=== PATIENT | female | born 2000 | race African-American/Black ===

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

== ENCOUNTER 2019-01-25 17:34 | Emergency (ER) | payer OTHER ==
[2019-01-25] MEDS ORDERED: cefTRIAXone\\ROCEPHIN 250 MG VIAL ONE (19:57)
[2019-01-25] MEDS ORDERED: Lidocaine 1% PF 5 ML VIAL ONE (19:57)
[2019-01-25] MEDS ORDERED: Azithromycin 250 MG TAB ONE (19:58)
[2019-01-25 20:27] LABS: Bilirubin Negative (Negative); Blood, Urine Negative (Negative); Clarity CLOUDY (Clear); Glucose, Urine (Dipstick) Negative (Negative); Leukocyte Negative (Negative); Nitrite Negative (Negative); Protein, Urine (Dipstick) Negative (Neg-Trace); Specific Gravity, Urine 1.031 (1.002-1.036)
[2019-01-25 20:30] LABS: Pregnancy Test - Urine (BHCG) Negative (Negative); Pregu Control Background? CLEAR/WHITE (CLR/WHITE); Pregu Control Bar Appear? YES (CONTROL BAR); Specific Gravity 1.031 (1.002-1.036)
[2019-01-28 12:06] LABS: Chlamydia by PCR Not Detected (NotDetected); GC by PCR Not Detected (NotDetected)
== END 2019-01-25 21:05 | disposition home or self-care (01) ==
LOC: ERS 17:34
DX: N89.8 Other specified noninflammatory disorders of vagina (principal); Z20.2 Contact with and (suspected) exposure to infections with a predominantly sexual mode of transmission
CPT/HCPCS: 81003; 81025; 87086; 87480; 87491; 87510; 87591; 87660; 96372; J0696; J2001

== ENCOUNTER 2019-11-26 21:44 | Emergency (ER) | payer SELFPAY ==
[2019-11-26] MEDS ORDERED: Naproxen 500 MG TAB ONE (22:07)
== END 2019-11-26 22:11 | disposition home or self-care (01) ==
LOC: ERS 21:44
DX: K02.9 Dental caries, unspecified (principal)
CPT/HCPCS: 99281

== ENCOUNTER 2020-07-19 05:01 | Day surgery (SDC) | payer OTHER ==
[2020-07-19] MEDS ORDERED: hydrALAZINE 20 MG/ML VIAL SLOW IVP PRN (05:41)
[2020-07-19 06:00] VITALS: BP 143/66; BMI 28.8
[2020-07-19] MEDS ORDERED: Lactated Ringer's 1,000 ML IV SCH ×2 (06:00→09:30)
--- NOTE | 2020-07-19 06:01 | PDOC.LDHP ---
Labor and Delivery H&P Chief complaint: contractions Current gestational age (weeks): 34 Allergies/Adverse Reactions: Allergies Allergy/AdvReac Type Severity Reaction Status Date / Time No Known Allergies Allergy Verified 01/05/20 10:38
--- NOTE | 2020-07-19 06:14 | PDOC.FPROB ---
FMR OB H&P: HPI - History of Present Illness Chief Complaint: Contraction Indentification: 20 yo at 34 wga by 8.5 wk sono History of Present Illness: Pt repors to L&D this morning for contractions that began around 4 am. She reports that she was up changing her sons diaper when she began to notice the contractions. She laid down and the contractions did not resolve. She did not time the contractions, but believes they were less than 5 minutes apart. Per the patient, she only drinks a max of 3 bottles of water a day and has had poor water intake over the last few days. She has also noticed that her urine is dark. She denies dysuria, urinary hesitancy, vaginal bleeding, vaginal discharge, LOF. She endorses movement. She reports she was last sexually active around 2 months of . She follows with [facility] due to history of delivery at 27 weeks for painless cervical dilation and reports that her last appointment with them was on 07/11. Primary Care Physician: MARCELINO Marti FMR OB H&P: Current - Care : 2 Para: 1 Gestational age: 34 Due date: 08/30/20 Dating Criteria: 8.5 wk sono Course/Complications: Previous delivery at 27 wks via classical c/s - OB Labs Blood type: AB RH: positive Antibody Screen: negative HIV: negative RPR: negative HepBsAg: negative Rubella: immune Quad screen: negative Urine drug screen: negative Gonorrhea: negative Chlamydia: negative (Positive for chlamydia in February, test of cure on 03/26 was negative) 3 hour GTT: 75, 128, 84 GBS: negative H&H: 11.133.1 Platelets: 202 FMR OB H&P: History - Past Medical History PMH: Denies - OB History OB History: Classical c section at 27 wga due to painless cervical dilation - 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: Menarche at age 11, periods every 21-32 days with 2-7 days Just turned 20 and has not yet had a pap smear History of gonorrhea and chlamydia - Surgical History Sx History: Classical c section - Social History Social History: Denies t/a/d [place] - Family History Family History: Per records, family history of cystic fibrosis in son Reports DM in grandmother FMR OB H&P: Medications - Current Home Medications: Medication Instructions Recorded Confirmed Type Betamet Acet/Betamet Na Ph 12 mg IM Q24HR vial 07/19/20 Rx [Celestone Soluspan] Famotidine 20 mg PO DAILY 07/19/20 07/19/20 History Pnv No.95/Ferrous Fum/Folic AC 1 tab PO DAILY 07/19/20 07/19/20 History [ Caplet] Progesterone, Micronized 1 capsule VAG DAILY 07/19/20 07/19/20 History [Progesterone] Allergies/Adverse Reactions: Allergies Allergy/AdvReac Type Severity Reaction Status Date / Time No Known Allergies Allergy Verified 01/05/20 10:38 FMR OB H&P: ROS - Review of Systems General: denies: fever/chills, fatigue Eyes: denies: vision changes ENT: denies: nasal congestion, rhinorrhea Cardiovascular: reports: edema. denies: chest pain Respiratory: denies: cough, congestion, shortness of breath Gastrointestinal: reports: abdominal pain. denies: nausea, vomiting, diarrhea Genitourinary (Female): reports: polyuria. denies: incontinence, dysuria, vaginal discharge, vaginal pain, vaginal bleeding Musculoskeletal: denies: pain Neurologic: denies: headache Integumentary: denies: rash Psychological: denies: anxiety FMR OB H&P: Vital Signs - Maternal Vital signs: Vital Signs - First Documented Pulse Resp BP 82 18 143/66 H 07/19/20 05:45 07/19/20 05:45 07/19/20 05:45 - Heart Tones [place] contractions every: 2-3 min FMR OB H&P: Physical Exam - Physical Exam General: NAD, awake, alert and oriented HEENT: grossly normal vision, grossly normal hearing Neck: supple, FROM Heart: RRR, normal S1/S2 General: CTAB, no respiratory distress Abdomen: gravid, non-tender Musculoskeletal: FROM in all four extremities Neurological: cranial nerves II through XII intact, sensation to pain,touch and proprioception grossly normal Skin: no rash Lymphatic: no unusual bruising or bleeding, no purpura, no petechia Psychiatric: intact recent and remote memory, good judgement and insight, normal mood and affect - Pelvic Exam Vulva: normal hair distribution, appropriate ariela stage SVE: Closed/thick/high FMR OB H&P: A/P - Problem List (1) contractions Current Visit: Yes Status: Acute Code(s): O47.9 - FALSE LABOR, UNSPECIFIED (2) Current Visit: Yes Status: Acute Discussion: Date/Time: 07/19/20 0612 20 yo at 34 wga by 8.5 wk US presents for contractions contractions r/o labor - SVE: closed/thick/high @ 0600 - fibronectin pending - will bolus 1 L of fluid, UA ordered - Pt follows with MFM - Last cervical length measurement found of 26-28 mm on , will repeat today - on daily vaginal progesterone - Per MFM, repeat at 37th week or 36th week if chandana more than 5 times/hour or dilated > 3 cm - will give 1st dose of steroids today - will keep patient NPO until labor is ruled out sIUP at 34 wga - r/o labor as above - FHT: reactive, will continue to monitor - GBS negative - Anterior placenta - Genetic screening: quad screen normal Hx of classical - delivery at 27 wga - will need repeat c/s at times mentioned above Hx of delivery - delivery at 27 wga in June of 2018 due to painless cervical dilation - Follows with MFM as mentioned above This H&P was discussed with Dr. Llanos and Dr. Shetty who agree with the above doc umentation and plan. Addendum - Attending - Attending Attestation Date/Time: 07/19/20 1143 I personally evaluated the patient and discussed the management with Dr. Alatorre I agree with the History, Examination, Assessment and Plan documented above with any addition or exceptions noted below - 20 yo @34 weeks presents c/o ctx since 4AM. Denies any LOF, VB. (+) FM. H/o delivery via classical C/S @27 weeks. Currently on vaginal progesterone. Afebrile VSS SVE- closed/thick/high. Cat 1 FHTs [place]- ctx q2-5 min. A/P: 1) IUP @34 weeks with ctx- will hydrate; check FFN and cervical length.
[2020-07-19 06:27] LABS: Bacteria/HPF None Seen HPF (None Seen); Bilirubin Negative (Negative); Blood, Urine Negative (Negative); Clarity Clear (Clear); Glucose, Urine (Dipstick) Normal (Negative); Ketone, Urine Negative (Negative); Leukocyte Negative Leu/uL (Negative); Nitrite Negative (Negative); Protein, Urine (Dipstick) Negative (Neg-Trace); RBC/HPF 0-3 HPF (0-3); Squamous Epithelial 0-3 HPF (0-3); Urobilinogen 3 mg/dL (Less than 2); WBC/HPF 0-3 HPF (0-3); pH, Urine 6.5 (5.0-9.0)
[2020-07-19] MEDS ORDERED: Betamet Acet/Betamet Na Ph 30 MG/5 ML VIAL IM SCH (06:30)
[2020-07-19 06:31] LABS: Urine Culture Reflex No No
[2020-07-19 07:06] LABS: Fetal Fibronectin Negative (Negative)
[2020-07-19 07:07] LABS: FFN Internal QC Analyzer PASS (PASS); FFN Internal QC Cassette PASS (PASS)
--- NOTE | 2020-07-19 09:39 | ULT ---
LIMITED OB ULTRASOUND: HISTORY: Evaluation of the cervical canal length. FINDINGS: Real-time imaging of the pelvis shows a single viable intrauterine in a cephalic presentati on. Placenta is anterior in location. No previa. The heart rate is 126 b.p.m. Amniotic flui d index was calculated at 11.0. Cervical canal length was difficult to assess. The best measurement is 2.9 cm. IMPRESSION: Cervical canal length of 2.9 cm. POS: [place]
--- NOTE | 2020-07-19 11:08 | PDOC.BPN ---
<Alexandra Man - Last Filed: 07/19/20 11:08> - Brief Progress Note Patient is a 20 yo at 34 wga by 8.5 wk US presents for contractions. She has now received 2L LR bolus. She reports feeling well. Denies anymore CTX. Her exam was 3. FHT 130s. Cervical length showed 2.99cm. FFN neg. She received betamethasone as well and has appointment to followup at [facility] tomorrow at 2pm to get 2nd injection. Encouraged patient to PO hydrate. She is also to continue vaginal progestrone. Per MFM, repeat 36-37th week if CTX more than 5 times/hr or dilated >3cm. Patient agreeable with the plan. Discussed plan with Dr. Fall. <Tomeka Fall - Last Filed: 07/19/20 11:56> Addendum - Attending - Attending Attestation Date/Time: 07/19/20 1150 I personally evaluated the patient and discussed the management with Dr. Man I agree with the History, Examination, Assessment and Plan documented above with any addition or exceptions noted below - Does not feel any further ctx. (+) FM. Cervical length 2.9; FFN-negative. A/P: 1) ctx- no evidence of PTL; received 1 dose of betamethasone; will give second dose in office tomorrow. D/c home with precautions.
== END 2020-07-19 11:45 | disposition home or self-care (01) ==
LOC: L&D/OP 05:01
PROVIDERS: ATTEND Family Medicine
DX: O47.03 False labor before 37 completed weeks of gestation, third trimester (principal); O09.213 Supervision of pregnancy with history of pre-term labor, third trimester; O34.212 Maternal care for vertical scar from previous cesarean delivery; Z3A.34 34 weeks gestation of pregnancy
CPT/HCPCS: 76815; 81001; 82731; J0702

== ENCOUNTER 2020-07-20 12:54 | Day surgery (SDC) | payer OTHER ==
--- NOTE | 2020-07-20 13:02 | PDOC.FPROB ---
FMR OB H&P: HPI - History of Present Illness Chief Complaint: back pain and CTX Indentification: 20 yo at 34 wga by 8.5 wk sono History of Present Illness: Patient is coming to L&D today due to CTX and low back pain. She reports they started around 4 am this morning and have gotten progressively worse. Intermittent. States CTX less than 5 min apart. Reports pain is 9/10. Patient had appt at [facility] for 2nd steroid shot but stated that she "couldn't make it that long." Of note, patient was here yesterday for CTX and was given steroids, fluid, UA neg for infection. Denies LOF. Reports decreased FM but that she does feel kicks every once in a while. She denies any vaginal bleeding or discharge. Reports increased urinary frequency. She follows with MFM due to history of delivery at 27 weeks for painless cervical dilation and reports that her last appointment with them was on 07/11. Primary Care Physician: MARCELINO Marti FMR OB H&P: Current - Care : 2 Para: 0101 Gestational age: 34.1 Due date: 08/30/20 Dating Criteria: 1T US Course/Complications: previous delivery at 27wks via classical cs - OB Labs Blood type: AB RH: positive Antibody Screen: negative HIV: negative RPR: negative HepBsAg: negative Rubella: immune Quad screen: negative Urine drug screen: negative Gonorrhea: negative Chlamydia: negative (pos in February, LOUIE on 03/26) 3 hour GTT: 75, 128, 84 GBS: negative H&H: 11.1/33.1 Platelets: 202 FMR OB H&P: History - Past Medical History PMH: denies - OB History OB History: classical c section 27wks due to painless cervical dilation - 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 age 11, periods every 21-32 days, duration 2-7days, normal flow Has not had a pap smear hx of gonorrhea/chlamydia s/p treatment - Surgical History Sx History: classical - Social History Social History: denies tobacco, drug or alcohol use Lives in [place] with her son - Family History Family History: Per records, fam hx of cystic fibrosis in son Grandmother - DM FMR OB H&P: Medications - Current Home Medications: Medication Instructions Recorded Confirmed Type Pnv No.95/Ferrous Fum/Folic AC 1 tab PO DAILY 07/19/20 07/20/20 History [ Caplet] Progesterone, Micronized 1 capsule VAG DAILY 07/19/20 07/20/20 History [Progesterone] Acetaminophen [Tylenol Extra 1,000 mg PO Q6H PRN tab 07/20/20 Rx Strength] Allergies/Adverse Reactions: Allergies Allergy/AdvReac Type Severity Reaction Status Date / Time No Known Allergies Allergy Verified 01/05/20 10:38 FMR OB H&P: ROS - Review of Systems General: denies: fever/chills, weight/appetite/sleep changes, night sweats, fatigue Eyes: denies: eye pain, vision changes, double vision, scotomas ENT: denies: nasal congestion, rhinorrhea, frequent nose bleed, sore throat Cardiovascular: denies: chest pain, palpitation, edema, paroxysmal nocturnal dyspnea Respiratory: denies: cough, congestion, shortness of breath Gastrointestinal: reports: abdominal pain, cramping. denies: indigestion, bloating, nausea, vomiting, diarrhea, constipation Genitourinary (Female): reports: polyuria, contractions. denies: incontinence, dysuria, hematuria, vaginal discharge, vaginal pain, vaginal bleeding, vaginal pressure Musculoskeletal: denies: pain, stiffness, tenderness, redness, swelling Neurologic: denies: weakness Integumentary: denies: rash Endocrine: reports: polyuria Psychological: denies: depression, anxiety FMR OB H&P: Vital Signs - Maternal Vital signs: 120/63, 91, 18, 98.4 - Heart Tones Baseline: 140 Variability: moderate Acceleration: present Deceleration: absent Category: category 1 [place] contractions every: irregular FMR OB H&P: Physical Exam - Physical Exam General: NAD, awake, alert and oriented HEENT: normocephalic and atraumatic, EOMI, MMM, no scleral icterus Neck: supple, FROM, trachea midline Chest: non-tender to palpation Breast: symmetric, non-tender, no palpable masses, no skin changes Heart: RRR, normal S1/S2, no murmurs/rubs/gallops, pulses present, no edema General: CTAB, no respiratory distress, good air movement, no rales/rhonchi, no wheezing, no retractions Abdomen: soft, gravid, non-tender, bowel sound present Musculoskeletal: normal gait and station, FROM in all four extremities Skin: no rash, good tugor, capillary refill <2 seconds Lymphatic: no unusual bruising or bleeding Psychiatric: intact recent and remote memory, good judgement and insight, normal mood and affect - Pelvic Exam Vulva: normal hair distribution, no masses, no lesions, no discharge, no blood SVE: -// Romero score: 3 Membranes: intact FMR OB H&P: A/P Discussion: Date/Time: 07/20/20 1259 20 yo at 34.1 wks by 8.5 wk US presents for contractions contractions r/o labor - SVE: 1-2//-3 - fibronectin neg on 07/19/20 - UA neg for infxn on 07/19/20 - Pt follows with MFM - Last cervical length measurement found of 2.6-2.8cm on . On 07/19, cervical length of 2.99cm. - On daily vaginal progesterone - Per MFM, repeat at 37th week or 36th week if chandana more than 5 times/hour or dilated > 3 cm - 1 dose of steroids on 07/19, will give 2nd dose today - PO hydrate, consider bolus - 1g Tylenol for pain - Will recheck in 2 hrs if continues to have CTX sIUP at 34.1wks - r/o labor as above - FHT: reactive, will continue to monitor - GBS negative - Anterior placenta - Genetic screening: quad screen normal Hx of delivery with classical - delivery at 27wks in 06/2018 due to painless cervical dilation - Follows with MFM as mentioned above and will need repeat csection at recommended time listed above This H&P was discussed with Dr. Fall who agree with the above documentation and plan. Addendum - Attending - Attending Attestation Date/Time: 07/21/20 1004 I personally evaluated the patient and discussed the management with Dr. Man on 07/20/2020 I agree with the History, Examination, Assessment and Plan documented above with any addition or exceptions noted below - 20 yo @34.1 weeks presents c/o low back pain and lower abdominal pressure since 4AM. Denies any LOF, VB. (+)FM. Afebrile VSS. SVE 1/thick/high, Cat 1 FHTs, [place]- no ctx; irritability A/P: 1) IUP @34.1 weeks with h/o delivery with last - no evidence of labor currently; Lower abd pain and back improved with tylenol. Second dose of steroids given today. Will d/c home and close follow-up in clinic.
[2020-07-20] MEDS ORDERED: hydrALAZINE 20 MG/ML VIAL SLOW IVP PRN (13:05)
[2020-07-20 13:18] VITALS: BP 120/63; TEMP 98.4
[2020-07-20 13:24] VITALS: BMI 28.8
[2020-07-20] MEDS ORDERED: Betamet Acet/Betamet Na Ph 30 MG/5 ML VIAL IM SCH (13:30)
[2020-07-20] MEDS ORDERED: FLU VACC QS2020-21(6MOS UP)/PF 60 MCG/0.5 ML SYRINGE IM ONE (13:45)
[2020-07-20] MEDS ORDERED: Acetaminophen 500 MG TAB PO PRN (14:01)
--- NOTE | 2020-07-20 15:21 | PDOC.BPN ---
- Brief Progress Note Patient resting comfortably now in bed. Irritability on the monitors. FHT cat 1 strip, 140s with accels. Patient given 1g tylenol, PO hydration, 2nd dose of sterodis. Discussed with patient that she is having normal pains related to the end of . Encouraged her to continue to PO hydrate at home. She can use tylenol for pain. Can use heating pad on her back or stretches as well. Continue progesterone daily. Patient's PCP to call on Thursday to schedule at 36- 37wga. Patient agreeable with plan. Patient to be discharge home. Case discussed with Dr. Fall.
== END 2020-07-20 15:24 | disposition home or self-care (01) ==
LOC: L&D/OP 12:54
PROVIDERS: ATTEND Family Medicine
DX: O47.03 False labor before 37 completed weeks of gestation, third trimester (principal); O99.891 Other specified diseases and conditions complicating pregnancy; M54.5 Low back pain; O34.218 Maternal care for other type scar from previous cesarean delivery; O09.213 Supervision of pregnancy with history of pre-term labor, third trimester; Z3A.34 34 weeks gestation of pregnancy
CPT/HCPCS: 96372; 99283; J0702

== ENCOUNTER 2020-08-02 12:45 | Inpatient (IN) | payer OTHER ==
[2020-08-02] MEDS: Lactated Ringer's 1,000 ML IV SCH ×2 (13:30→14:40)
[2020-08-02] MEDS ORDERED: Acetaminophen 500 MG TAB PO PRN (13:49)
[2020-08-02] MEDS ORDERED: Promethazine HCl 25 MG/ML VIAL IM PRN ×2 (13:49→14:27)
[2020-08-02] MEDS ORDERED: Docusate 100 MG CAP PO PRN (13:49)
[2020-08-02] MEDS ORDERED: Ondansetron PF 4 MG/2 ML Vial IVP PRN ×2 (13:49→14:27)
[2020-08-02] MEDS ORDERED: hydrALAZINE 20 MG/ML VIAL SLOW IVP PRN ×2 (13:49→18:42)
[2020-08-02] MEDS ORDERED: Bicitra 30 ML UDCUP ONE (13:53)
[2020-08-02 13:58] VITALS: BMI 27.6
[2020-08-02] MEDS ORDERED: CEFAZOLIN 2 GM in Premix Bag 1 BAG IVPB SCH (14:00)
[2020-08-02] MEDS ORDERED: Bicitra 30 ML UDCUP PO SCH (14:00)
[2020-08-02] MEDS ORDERED: Ondansetron PF 4 MG/2 ML Vial ONE (14:11)
[2020-08-02] MEDS ORDERED: ePHEDrine 50 MG/ML VIAL ONE (14:11)
[2020-08-02] MEDS ORDERED: Oxytocin 10 UNITS/ML VIAL ONE ×2 (14:11→15:55)
[2020-08-02] MEDS ORDERED: Ketorolac Tromethamine 30 MG/ML VIAL ONE (14:11)
[2020-08-02] MEDS ORDERED: PHENYLEPHRINE-NS 100 MCG/ML 10 ML SYRINGE ONE (14:11)
[2020-08-02 14:19] LABS: Hemoglobin 10.6 g/dL (12.0-16.0); Mean Corpuscular HGB CONC 31.8 g/dL (32.0-36.0); Mean Corpuscular Hemoglobin 26.4 pg (27.0-31.0); Mean Corpuscular Volume 83.2 fL (78.0-98.0); Mean Platelet Volume 8.8 fL (7.4-10.4); Platelet Count 195 thou/uL (130-400); Red Blood Cell (RBC) Count 4.02 mill/uL (4.20-5.40); White Blood Cell (WBC) Count 8.9 thou/uL (4.8-10.8)
[2020-08-02] MEDS ORDERED: L&D-Morphine 4 MG/ML VIAL SLOW IVP PRN (14:27)
[2020-08-02] MEDS ORDERED: HYDROmorphone 2 MG/ML VIAL SLOW IVP PRN (14:27)
[2020-08-02] MEDS ORDERED: Promethazine HCl 25 MG SUPP PR PRN (14:27)
[2020-08-02] MEDS ORDERED: Meperidine HCl/PF 25 MG/ML VIAL SLOW IVP PRN (14:27)
[2020-08-02] MEDS ORDERED: Naloxone HCl 0.4 mg/ml Vial IVP PRN ×2 (14:27)
[2020-08-02] MEDS ORDERED: diphenhydrAMINE 50 MG/ML VIAL IVP PRN (14:27)
[2020-08-02] MEDS ORDERED: Ondansetron HCl/PF 4 MG/2 ML Vial IVP PRN (14:27)
[2020-08-02] MEDS ORDERED: Ketorolac Tromethamine 30 MG/ML VIAL IVP SCH (14:30)
[2020-08-02] MEDS ORDERED: Communication Order-Pharmacy FS SCH (14:30)
[2020-08-02 14:57] LABS: Syphilis Antibody Nonreactive (Nonreactive); Syphilis Antibody Index 0.05 S/CO (<1.00 Non-Reactive)
[2020-08-02 14:58] LABS: HBSAg Index 0.15 S/CO (0-0.99); Hep B Surf Ag Non-Reactive S/CO (NonReactive)
[2020-08-02] MEDS ORDERED: Ketamine 50 MG/ML (10ML VIAL) ONE (15:44)
[2020-08-02] MEDS ORDERED: Midazolam HCl 2 mg/2 ml Vial ONE (15:46)
--- NOTE | 2020-08-02 16:00 | PDOC.FPROB ---
FMR OB H&P: HPI - History of Present Illness Chief Complaint: Dilated History of Present Illness: Patient is a 23 yo at 36.0 weeks by 8.5 week sono, [place] 08/30/2020 who was sent over from clinic after having an SVE that showed she was 3cm dilated. Patient denies contractions, loss of fluid, VB or VD and notes baby is moving well. 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 At 27 weeks started to have contractions, dilated to 5cm and csection was performed due to lie. -- Classical csection - [employer] History [employer] History: NILM 12/2018 - Surgical History Sx History: classical csection - Social History Social History: no smoking, drugs or alcohol - Family History Family History: CF in son FMR OB H&P: Medications - Current Home Medications: Medication Instructions Recorded Confirmed Type Mv-Mn/Iron/FA/Herbal/Digestive 1 tablet PO DAILY 08/02/20 08/02/20 History [ One Tablet] Allergies/Adverse Reactions: Allergies Allergy/AdvReac Type Severity Reaction Status Date / Time No Known Allergies Allergy Verified 08/02/20 13:58 FMR OB H&P: ROS - Review of Systems General: denies: fever/chills, weight/appetite/sleep changes Eyes: denies: eye pain, vision changes ENT: denies: nasal congestion, rhinorrhea Cardiovascular: denies: chest pain, palpitation Respiratory: denies: cough, congestion Gastrointestinal: denies: abdominal pain, nausea, vomiting, diarrhea Genitourinary (Female): denies: incontinence, dysuria Musculoskeletal: denies: pain, stiffness Neurologic: denies: numbness, syncope Integumentary: denies: itching, rash Breast: denies: lumps, bumps Endocrine: denies: cold intolerance, heat intolerance Hematologic/Lymphatic: denies: prolonged or excessive bleeding, enlarged lymph nodes Psychological: denies: depression, anxiety FMR OB H&P: Vital Signs - Maternal Vital signs: Vital Signs - First Documented Temp Pulse Resp BP Pulse Ox 98.7 F 89 18 129/78 99 08/02/20 13:53 08/02/20 13:53 08/02/20 13:53 08/02/20 13:53 08/02/20 13:53 - Heart Tones Variability: moderate Acceleration: present Deceleration: absent Category: category 1 Woodman contractions every: none FMR OB H&P: Physical Exam - Physical Exam General: NAD HEENT: normocephalic and atraumatic, PERRLA, EOMI Neck: supple Heart: RRR, no murmurs/rubs/gallops General: CTAB, no respiratory distress Abdomen: soft, gravid Musculoskeletal: normal gait and station, FROM in all four extremities Neurological: sensation to pain,touch and proprioception grossly normal, no focal deficit FMR OB H&P: Results - Labs Lab results: Laboratory Results - last 24 hr 08/02/20 08/02/20 08/02/20 14:04 14:04 14:04 WBC 8.9 RBC 4.02 L Hgb 10.6 L Hct 33.4 L MCV 83.2 MCH 26.4 L MCHC 31.8 L RDW 14.0 Plt Count 195 MPV 8.8 Syphilis IgG/IgM Ab Nonreactive Blood Type AB POSITIVE FMR OB H&P: A/P - Problem List (1) Current Visit: No Status: Acute Qualifiers: Weeks of gestation: 36 weeks Qualified Code(s): Z3A.36 - 36 weeks gestation of Discussion: Date/Time: 08/02/20 1559 Patient is a 19 year old @ 36 weeks based on 8.2 week sono who was sent over from clinic due to being dilated to 3cm. 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 Lopez and Skyla who agree with the above documentation and plan. Addendum - Attending - Attending Attestation Date/Time: 08/02/20 9033 I personally evaluated the patient and discussed the management with Dr. Hodge. I agree with the History, Examination, Assessment and Plan documented above with any addition or exceptions noted below. at 36.0 wk w/ prior classical. C/T/H on 07/20 -> 4-5 cm today. needs rLTCS for prior classical with latent labor. R/B/A/I discussed w/ pt who agreed to proceed.
--- NOTE | 2020-08-02 17:46 | PDOC.OPDEL ---
OB Operative/Delivery Note Delivery Dr/Surgeon: Philipp/Skyla Pre-Delivery Diagnosis: other ( cervical dilation in setting of history of classical uterine c/s with [facility] recommendations to deliver via rLTCS if cervical dilation >= 3cm.) Procedure/Post Delivery Dx: repeat low transverse CS (with vacuum-assisted extraction) Anesthesia: spinal - Findings A Sex: female Weight: 2735 kg - 1 min: 6 - 5 min: 8 - Additional Findings/Plan Placenta delivered: manual removal findings: low transverse hysterotomy without extension, other (moderate, complex scar tissue and adhesions between fascia and uterus) Estimated blood loss: 900 Compilations/Other Findings: Date of Procedure: 08/02/20 Resident Surgeon: Philipp Attending Surgeon: Skyla Procedure: Repeat low transverse caesarean section Preoperative Diagnosis: 1) Cervical dilation in setting of h/o cervical insufficiency with h/o classical uterine caesarean 2) , [facility] 3) Cystic Fibrosis carrier 4) History of GC/C with LOUIE negative this Postoperative Diagnosis: 1) Vacuum-assisted repeat low transverse caesarean section 2) Uterine window 3) Moderate scar tissue and complex intraabdominal adhesions. Anesthesia: spinal Indications: The patient is a 20 year old female at 36.0 weeks by 8.5 week sono who presented with active cervical dilation in setting of history of cervical insufficiency with history of classical uterine caesarean. [facility] recommendations to delivery via repeat low transverse caesarean if cervical dilation progressing and dilation greater than or equal to 3cm. Procedure in Detail: After risks, benefits, and alternatives were explained to the patient, she gave informed consent. Pre-operative antibiotics included Cefazolin 2 gram IV. The patient was taken to the operating room and spinal anesthesia was initiated. She was placed in the supine position with a left tilt and prepped and draped in usual sterile fashion. A Pfannenstiel incision was made with a scalpel over the previous pfannenstiel skin excision and carried down to the level of the fascia which was sharply nicked. Small areas of bleeding were controlled with bovie electrocautery. The fascial cut was extended bilaterally with Yoo scissors. The inferior and superior edges of the cut fascial edges were elevated with Mary clamps and the underlying rectus muscles were sharply and bluntly dissected free. Moderate, complex adhesions were noted between the rectus layer and the fascial layer which required blunt and sharp dissection. The recti were then divided with blunt and sharp dissection and retracted manually. The peritoneum was entered bluntly and retracted manually. Again, moderate, complex adhesions were noted between the rectus layer and anterior aspect of the uterus. Adhesions were bluntly dissected along with bovie electrocautery to provide adequate space and uterine visualization. An Foster O was then placed. A bladder flap was then made using Mets and blunt dissection. A small uterine window, approx 1.5cm, was noted at the inferior apex of the previous classical incision scar. A low transverse score was made with a new, clean scalpel and the uterus was entered in the midline bluntly. The hysterotomy was extended manually. The infant was noted to be vertex and was not easily delivered by fundal pressure alone due to restriction from the abdominal scaring. Vacuum-assisted extraction was performed with no pop-offs, and infant was delivered at 1546. Mouth and nares were bulb suctioned. Cord clamped and cut and grossly normal female infant was handed to waiting nurse. Cord blood was obtained. Placenta was manually extracted, found to be intact with 3 vessel cord and discarded. The uterus was unable to be externalized due to adhesions. The endometrium was curetted with a dry lap x2. The uterus was noted to be firm. The uterus was then closed with a running locking #1 Monocryl. A running, nonlocking, imbricating layer was then placed using #1 Monocryl over the initial hysterotomy repair. The hysterotomy incision was then noted to be hemostatic. The uterine window was noted be in intact and hemostatic. The omentum was noted to be adhesed to the superior, anterior aspect of the uterus with small areas of oozing over the anterior aspect of the uterus. Bovie electrocautery was used to control active bleeders. Monica was then placed over the anterior aspect of the uterus and the uterus was then noted to be hemostatic. The Foster O was then removed and again, uterus was inspected and noted to be hemostatic. The scarred, rectus layer was noted to have areas of small bleeding which were cauterized with bovie electrocautery and more Monica placed. The rectus, peritoneum, and uterus were again inspected and found to be hemostatic. The fascia was then c losed with a running non-locking 1-PDS suture. The bovie electrocautery was used to achieve hemostatis of small areas of bleeding. The subcutaneous tissue was irrigated and there were no bleeders. The subcutaneous tissue was reapproximated with a running, nonlocking 2-0 plain gut suture. The skin was approximated with a running, nonlocking 3-0 Monocryl suture. All counts were correct x3. The patie nt tolerated the procedure well and was taken to the recovery room in stable condition. QBL: 900cc Complications: None Specimens: Cord blood sent to lab for blood type. Findings: 1. Grossly normal female with Apgars of 6 and 8 who went to the NICU for respiratory distress. 2. Grossly normal placenta with 3 vessel cord. 3. Moderate, complex adhesions noted over anterior aspect of uterus between omentum and rectus layer 4. Approximately 1.5cm uterine window on anterior aspect of uterus at inferior edge of previous classical incision scar Drains: Johnson to gravity draining clear urine ATTENDING ADDENDUM: I was present for and supervised all critical portions of the procedure. I agree with the above documentation. Post delivery plan: routine recovery
[2020-08-02] MEDS ORDERED: NS / Oxytocin 40 units/1000ml 1,000 ML IV SCH (18:42)
[2020-08-02] MEDS ORDERED: Methylergonovine 0.2 MG/ML VIAL IM PRN (18:42)
[2020-08-02] MEDS ORDERED: Acetaminophen 325 MG TAB PO PRN (18:42)
[2020-08-02] MEDS ORDERED: HYDROcodone/Acetaminophen 5/325 mg Tablet PO PRN ×2 (18:42)
[2020-08-02 19:08] LABS: SARS-CoV-2 MS2 Positive; SARS-CoV-2 N Gene Negative; SARS-CoV-2 S Gene Negative; SARS-CoV-2 by NAA Not Detected (NotDetected); SARS-CoV-2 orf1ab Negative
--- NOTE | 2020-08-02 19:40 | PDOC.BPN ---
- Brief Progress Note Encounter Date: 08/02/20 Encounter Time: 19:30 4 hour Post-OP CS check. HPI: Pt reports she has no pain, is feeling well. Denies headache, chest pain, SOB. Reports she is starting to itch. Ph ex: Vitals signs stable. Cardiac: RRR, no murmur Lungs: BCTA Abd: soft, NTTP, fundus firm below umbilicus. CS incision covered with bandage, has not soaked through. Lochia minimal. A/P: Continue routine PP care Benadryl for itching.
[2020-08-02] MEDS: Ketorolac Tromethamine 30 MG/ML VIAL IVP PRN (20:16)
[2020-08-03] MEDS: Ketorolac Tromethamine 30 MG/ML VIAL IVP PRN (05:32)
[2020-08-03 06:14] LABS: Hemoglobin 7.9 g/dL (12.0-16.0); Mean Corpuscular HGB CONC 32.1 g/dL (32.0-36.0); Mean Corpuscular Hemoglobin 27.2 pg (27.0-31.0); Mean Corpuscular Volume 84.5 fL (78.0-98.0); Mean Platelet Volume 8.8 fL (7.4-10.4); Platelet Count 169 thou/uL (130-400); RBC Distribution Width 13.8 % (11.5-14.5); Red Blood Cell (RBC) Count 2.89 mill/uL (4.20-5.40); White Blood Cell (WBC) Count 14.5 thou/uL (4.8-10.8)
[2020-08-03] MEDS: Docusate Calcium (SURFAK) 240 MG CAP PO SCH ×3 (07:07→20:57)
[2020-08-03] MEDS: Lactated Ringer's 1,000 ML IV SCH ×4 (07:24→21:09)
--- NOTE | 2020-08-03 08:11 | PDOC.PP ---
Post Progress Note Post Day #: 1 Subjective: Patient is resting comfortably in bed. States she no abdominal pain or pain at the incision site. States she has been urinating frequently and her valdez just got taken out. She has eaten some jello and states mild nausea at first that resolved and she just ordered a normal breakfast. Patient states she is about to get up and walk for a bit. Denies fever/chills, denies syncope, feeling light- headed, palpitations. PO intake tolerated: yes Ambulation: no Vital Signs (12 hours) Temp Pulse Resp BP 08/03/20 05:31 98.5 F 95 16 100/63 08/03/20 01:10 97.9 F 79 16 111/59 L Weight Weight 77.564 kg - Physical Examination General: NAD Cardiovascular: no m/r/g, RRR Respiratory: clear to auscultation bilaterally, non-labored breathing Abdominal: + bowel sounds, lochia (mild), appropriately TTP Skin: CS incision dry & intact, no rash Neurological: no gross focal deficits Psychiatric: A&Ox3, normal affect Result Diagrams: 08/03/20 05:47 Additional Labs: Post Labs Hep Bs Antigen Non-Reactive S/CO (NonReactive) 08/02/20 14:04 Blood Type AB POSITIVE 08/02/20 14:04 (1) delivery Code(s): O60.10X0 - LABOR W DELIVERY, UNSP TRIMESTER, UNSP Status: Acute (2) delivery delivered Code(s): O82 - ENCOUNTER FOR DELIVERY WITHOUT INDICATION Status: Acute - Assessment/Plan 20 yo @ 36 weeks delivered via rLTCs @ 1546 on 08/02/2020 Delivery via rLTCs at 36 weeks Post-op Day 1 EBL 900, APGARS 6/8 H/H 7.9/24.4, currently asymptomatic - recheck CBC in am - will give oral iron - pain is controlled, tylenol and norco prn - will continue to monitor This H&P was discussed with Dr. Lopez and Skyla who agree with the above documentation and plan. Addendum - Attending - Attending Attestation Date/Time: 08/03/20 1046 I personally evaluated the patient and discussed the management with Dr. Hodge. I agree with the History, Examination, Assessment and Plan documented above with any addition or exceptions noted below. Denied sx with standing. Continue pain control and other expectant management. Possible d/c tomorrow. Discussed uterine window and abdominal adhesions with patient and explained possible complications with future pregnancies including uterine rupture and maternal/ . F/U clinic for contraception.
[2020-08-03] MEDS ORDERED: Adacel (T-DAP) 0.5 ML SYRINGE IM ONE (09:00)
[2020-08-03] MEDS: Ferrous Sulfate 325 MG TAB PO SCH ×2 (09:06→19:05)
[2020-08-03] MEDS: Prenatal Vitamin 1 TAB PO SCH (09:06)
[2020-08-03] MEDS: Ibuprofen 800 MG TAB PO SCH ×2 (14:26→20:57)
[2020-08-03] MEDS: Naloxone HCl 0.4 mg/ml Vial IV PRN ×3 (14:33→15:26)
[2020-08-04] MEDS: Ibuprofen 800 MG TAB PO SCH ×3 (04:48→21:37)
[2020-08-04] MEDS: Ferrous Sulfate 325 MG TAB PO SCH ×2 (08:56→17:06)
[2020-08-04] MEDS: Prenatal Vitamin 1 TAB PO SCH (08:56)
[2020-08-04] MEDS: Docusate Calcium (SURFAK) 240 MG CAP PO SCH ×2 (08:56→21:36)
[2020-08-04] MEDS ORDERED: Acetaminophen/Codeine 30-300mg Tablet PO PRN (08:57)
--- NOTE | 2020-08-04 09:03 | PDOC.PP ---
Post Progress Note Post Day #: 2 PO intake tolerated: yes Flatus: yes Ambulation: yes Vital Signs (12 hours) Temp Pulse Resp BP Pulse Ox 08/04/20 07:40 98.8 F 93 18 100/55 L 98 08/04/20 04:00 98.1 F 94 16 96/55 L Weight Weight 77.564 kg - Physical Examination General: NAD Cardiovascular: no m/r/g, RRR Respiratory: clear to auscultation bilaterally, non-labored breathing Abdominal: + bowel sounds, no distention, appropriately TTP Extremities: negative homans (B) Skin: CS incision dry & intact, no rash Neurological: no gross focal deficits Psychiatric: A&Ox3, normal affect Result Diagrams: 08/03/20 05:47 Additional Labs: Post Labs Hep Bs Antigen Non-Reactive S/CO (NonReactive) 08/02/20 14:04 Blood Type AB POSITIVE 08/02/20 14:04 (1) delivery Code(s): O60.10X0 - LABOR W DELIVERY, UNSP TRIMESTER, UNSP Status: Acute (2) delivery delivered Code(s): O82 - ENCOUNTER FOR DELIVERY WITHOUT INDICATION Status: Acute - Assessment/Plan 20 yo @ 36 weeks delivered via rLTCs @ 1546 on 08/02/2020 Delivery via rLTCs at 36 weeks Post-op Day 2 EBL 900, APGARS 6/8 H/H 7.9/24.4, asymptomatic - will give oral iron - pain is controlled, tylenol and norco prn - discussed uterine window and abdominal adhesions with patient and explained possible complications with future pregnancies including uterine rupture and maternal/ - patient will f/u in clinic in 2 weeks for contraception Dispo: likely 08/05 due to baby recovering in NICU Addendum - Attending - Attending Attestation Date/Time: 08/04/20 1018 I personally evaluated the patient and discussed the management with Dr. Hodge I agree with the History, Examination, Assessment and Plan documented above with any addition or exceptions noted below.
[2020-08-05] MEDS: Ibuprofen 800 MG TAB PO SCH (06:07)
--- NOTE | 2020-08-05 06:45 | PDOC.PP ---
Post Progress Note Post Day #: 3 Subjective: Patient is resting comfortably in bed. Reports + flatus, pain at incision site is well controlled, UOP is good, has had 1 small BM, eating and drinking normally. Notes small amount of spotting. No headaches, blurred vision, chest pain, or shortness of breath. No complaints, no acute events overnight. PO intake tolerated: yes Flatus: yes Ambulation: yes Vital Signs (12 hours) Temp Pulse Resp BP Pulse Ox 08/04/20 20:57 98.8 F 105 H 18 116/60 98 Weight Weight 77.564 kg - Physical Examination General: NAD Cardiovascular: no m/r/g, RRR Respiratory: clear to auscultation bilaterally Abdominal: + bowel sounds, no distention Extremities: negative homans (B) Skin: CS incision dry & intact, no rash Neurological: no gross focal deficits Psychiatric: A&Ox3 Result Diagrams: 08/03/20 05:47 Additional Labs: Post Labs Hep Bs Antigen Non-Reactive S/CO (NonReactive) 08/02/20 14:04 Blood Type AB POSITIVE 08/02/20 14:04 (1) delivery Code(s): O60.10X0 - LABOR W DELIVERY, UNSP TRIMESTER, UNSP Status: Acute (2) delivery delivered Code(s): O82 - ENCOUNTER FOR DELIVERY WITHOUT INDICATION Status: Acute - Assessment/Plan 20 yo @ 36 weeks delivered via rLTCs @ 1546 on 08/02/2020 Delivery via rLTCs at 36 weeks Post-op Day 3 EBL 900, APGARS 6/8 H/H 7.9/24.4, asymptomatic - will give oral iron - pain is controlled, tylenol 3 prn, ibuprofen scheduled - discussed uterine window and abdominal adhesions with patient and explained possible complications with future pregnancies including uterine rupture and maternal/ - patient will f/u in clinic in 2 weeks for contraception discussion Dispo: likely this morning pending baby d/c from NICU Addendum - Attending - Attending Attestation Date/Time: 08/05/20 1117 I personally evaluated the patient and discussed the management with Dr. Hodge. I agree with the History, Examination, Assessment and Plan documented above with any addition or exceptions noted below. D/C home today. [employer]IAN reviewed and appropriate.
[2020-08-05] MEDS: Docusate Calcium (SURFAK) 240 MG CAP PO SCH (08:56)
[2020-08-05] MEDS: Prenatal Vitamin 1 TAB PO SCH (08:56)
[2020-08-05] MEDS: Ferrous Sulfate 325 MG TAB PO SCH (08:56)
[2020-08-05 12:31] VITALS: BP 113/60; TEMP 98.6
== END 2020-08-05 12:20 | disposition home or self-care (01) | DRG 788 ==
LOC: L&D-LIB 12:45 → 3SW 18:48
PROVIDERS: ADMIT Family Medicine; ATTEND Family Medicine
PROC: 10D00Z1 Extraction of Products of Conception, Low, Open Approach (ICD-10-PCS; principal; 2020-08-02)
DX: O60.14X0 Preterm labor third trimester with preterm delivery third trimester, not applicable or unspecified (principal); Z3A.36 36 weeks gestation of pregnancy; Z37.0 Single live birth; Z14.1 Cystic fibrosis carrier; Z20.828 Contact with and (suspected) exposure to other viral communicable diseases; O99.63 Diseases of the digestive system complicating the puerperium; K66.0 Peritoneal adhesions (postprocedural) (postinfection)
CPT/HCPCS: 36415; 51702; 85027; 86780; 86850; 86900; 86901; 87340; 87635; J0690; J1200; J1885; J2250; J2270; J2310; J2405; J3490; U0003

== ENCOUNTER 2020-10-11 12:11 | Emergency (ER) | payer OTHER ==
[2020-10-11 13:22] LABS: Bilirubin Negative (Negative); Blood, Urine 3+ (Negative); Clarity Extra Turbid (Clear); Glucose, Urine (Dipstick) Normal (Negative); Ketone, Urine Negative (Negative); Leukocyte 500 Leu/uL (Negative); Nitrite Negative (Negative); Pregnancy Test - Urine (BHCG) Negative (Negative); Pregu Control Background? CLEAR/WHITE (CLR/WHITE); Pregu Control Bar Appear? YES (CONTROL BAR); Protein, Urine (Dipstick) 50 mg/dL (Neg-Trace); RBC/HPF Greater than 50 HPF (0-3); Specific Gravity 1.023 (1.002-1.036); Specific Gravity, Urine 1.028 (1.002-1.036); Squamous Epithelial 0-3 HPF (0-3)
[2020-10-11 13:29] LABS: Bacteria/HPF None Seen HPF (None Seen)
== END 2020-10-11 14:01 | disposition home or self-care (01) ==
LOC: ERS 12:11
DX: N39.0 Urinary tract infection, site not specified (principal); D64.9 Anemia, unspecified; Z79.899 Other long term (current) drug therapy
CPT/HCPCS: 81003; 81015; 81025; 87086; 99283

== ENCOUNTER 2022-03-04 18:38 | Emergency (ER) | payer OTHER ==
[2022-03-04 19:15] LABS: Bilirubin Negative (Negative); Blood, Urine Negative (Negative); Clarity Turbid (Clear); Glucose, Urine (Dipstick) Normal (Negative); Ketone, Urine Negative (Negative); Leukocyte 500 Leu/uL (Negative); Mucous/LPF Rare LPF (<2+); Nitrite Negative (Negative); Protein, Urine (Dipstick) 10 mg/dL (Neg-Trace); Urobilinogen 3 mg/dL (Less than 2)
[2022-03-04 19:20] LABS: Bacteria/HPF 2+ HPF (None Seen)
[2022-03-04 20:38] LABS: Pregnancy Test - Urine (BHCG) Negative (Negative); Pregu Control Background? CLEAR/WHITE (CLR/WHITE); Pregu Control Bar Appear? YES (CONTROL BAR)
[2022-03-04] MEDS ORDERED: Azithromycin 250 MG TAB ONE (20:59)
[2022-03-04] MEDS ORDERED: cefTRIAXone\\ROCEPHIN 500 MG VIAL ONE (20:59)
[2022-03-04] MEDS ORDERED: Lidocaine 1% PF 5 ML VIAL ONE ×2 (20:59→21:01)
[2022-03-04] MEDS ORDERED: Fluconazole 100 MG TAB PO SCH (22:00)
== END 2022-03-04 22:12 | disposition home or self-care (01) ==
LOC: ERS 18:38
DX: N39.0 Urinary tract infection, site not specified (principal); N76.0 Acute vaginitis; B37.3 Candidiasis of vulva and vagina; Z11.3 Encounter for screening for infections with a predominantly sexual mode of transmission
CPT/HCPCS: 81003; 81015; 81025; 87480; 87510; 87660; 96372; 99283; J0696

== ENCOUNTER 2022-11-26 10:24 | Emergency (ER) | payer OTHER ==
[2022-11-26] MEDS ORDERED: cefTRIAXone\\ROCEPHIN 500 MG VIAL ONE (11:41)
[2022-11-26] MEDS ORDERED: Lidocaine 1% MPF 2 ML VIAL ONE (11:41)
[2022-11-26] MEDS ORDERED: Azithromycin 250 MG TAB ONE (11:41)
[2022-11-26 12:28] LABS: Bilirubin Negative (Negative); Blood, Urine Negative (Negative); Clarity Turbid (Clear); Glucose, Urine (Dipstick) Normal (Negative); Ketone, Urine Negative (Negative); Leukocyte 500 Leu/uL (Negative); Nitrite Negative (Negative); Protein, Urine (Dipstick) 10 mg/dL (Neg-Trace)
[2022-11-26 12:37] LABS: Bacteria/HPF 2+ HPF (None Seen); Trichomonas/HPF 2+ HPF (None Seen); WBC/HPF 21-50 HPF (0-3)
[2022-11-26] MEDS ORDERED: Acetaminophen 500 MG TAB ONE (13:43)
[2022-11-26 23:19] LABS: Chlamydia by PCR Not Detected (NotDetected); GC by PCR Not Detected (NotDetected)
== END 2022-11-26 13:44 | disposition home or self-care (01) ==
LOC: ERS 10:24
DX: A59.01 Trichomonal vulvovaginitis (principal); J06.9 Acute upper respiratory infection, unspecified; N76.0 Acute vaginitis; H92.01 Otalgia, right ear
CPT/HCPCS: 36415; 76801; 81003; 81015; 84702; 86900; 86901; 87480; 87491; 87510; 87591; 87660; 96372; J0696

== ENCOUNTER 2023-01-20 22:00 | Emergency (ER) | payer OTHER ==
[2023-01-20 23:15] LABS: #Eosinphils 0.2 thou/uL (0.0-0.7); #Lymphocytes 2.9 thou/uL (1.20-3.40); #Monocytes 0.8 thou/uL (0.11-0.59); #Neutrophils 5.8 thou/uL (1.40-6.50); %Basophils 0.3 % (0.0-1.0); %Eosinophils 2.2 % (0.0-10.0); %Lymphocytes 29.9 % (21.0-51.0); %Monocytes 7.9 % (0.0-10.0); %Neutrophils 59.8 % (42.0-75.0); Hemoglobin 9.8 g/dL (12.0-16.0); Mean Corpuscular HGB CONC 32.1 g/dL (32.0-36.0); Mean Corpuscular Hemoglobin 27.6 pg (27.0-31.0); Mean Corpuscular Volume 85.8 fl (78.0-98.0); Mean Platelet Volume 8.2 fL (7.4-10.4); Platelet Count 250 10x3/uL (130-400); RBC Distribution Width 12.8 % (11.5-14.5); Red Blood Cell (RBC) Count 3.56 mill/uL (4.20-5.40); White Blood Cell (WBC) Count 9.7 10x3/uL (4.8-10.8)
[2023-01-20 23:59] LABS: ALT (SGPT) 9 U/L (8-55); AST (SGOT) 13 U/L (5-34); Albumin 3.2 g/dL (3.5-5.0); Alkaline Phosphatase 52 U/L (40-110); BUN (Urea Nitrogen) 7 mg/dL (7.0-18.7); Bilirubin, Total 0.3 mg/dL (0.2-1.2); Calc. Creatinine Clearance 0 mL/min (70-130); Calcium 8.8 mg/dL (7.8-10.44); Chloride 104 mmol/L (98-107); Estimated GFR 129; Globulin 3.8 g/dL (2.4-3.5); Glucose 81 mg/dL (70-105); Potassium 3.8 mmol/L (3.5-5.1); Sodium 135 mmol/L (136-145)
[2023-01-21 00:09] LABS: Bilirubin Negative (Negative); Blood, Urine Negative (Negative); CAUTI Indications for Culture Pregnancy; Clarity Turbid (Clear); Glucose, Urine (Dipstick) Normal (Negative); Ketone, Urine Negative (Negative); Leukocyte 500 Leu/uL (Negative); Nitrite Negative (Negative); Protein, Urine (Dipstick) Negative (Neg-Trace); Specific Gravity, Urine 1.017 (1.002-1.036); pH, Urine 7.5 (5.0-9.0)
[2023-01-21 00:20] LABS: Anion Gap 12 mmol/L (10-20); Carbon Dioxide 22 mmol/L (22-29)
[2023-01-21 00:22] LABS: Bacteria/HPF Rare-Few HPF (None Seen); RBC/HPF 0-3 HPF (0-3); Squamous Epithelial 0-3 HPF (0-3)
[2023-01-21 00:24] LABS: Urine Culture Reflex Yes Yes
== END 2023-01-21 00:32 | disposition home or self-care (01) ==
LOC: ERS 22:00
DX: O20.8 Other hemorrhage in early pregnancy (principal); Z3A.21 21 weeks gestation of pregnancy
CPT/HCPCS: 36415; 76815; 80053; 81001; 85025; 86900; 86901; 87086

== ENCOUNTER 2023-06-13 14:19 | Inpatient (IN) | payer OTHER ==
[2023-06-13] MEDS ORDERED: Morphine 4 MG/ML VIAL ONE (15:13)
[2023-06-13] MEDS ORDERED: Ketorolac Tromethamine 30 MG/ML VIAL ONE (15:13)
[2023-06-13] MEDS ORDERED: Ondansetron PF 4 MG/2 ML Vial ONE (15:13)
[2023-06-13] MEDS ORDERED: cefTRIAXone (ROCEPHIN) 1 GM VIAL ONE (15:13)
[2023-06-13 15:15] LABS: #Monocytes 0.7 thou/uL (0.11-0.59); #Neutrophils 10.4 thou/uL (1.40-6.50); %Basophils 0.2 % (0.0-1.0); %Eosinophils 0.1 % (0.0-10.0); %Lymphocytes 9.8 % (21.0-51.0); %Monocytes 5.7 % (0.0-10.0); %Neutrophils 83.9 % (42.0-75.0); Hematocrit 40.6 % (36.0-47.0); Hemoglobin 12.5 g/dL (12.0-16.0); Mean Corpuscular HGB CONC 30.8 g/dL (32.0-36.0); Mean Corpuscular Hemoglobin 25.7 pg (27.0-31.0); Mean Corpuscular Volume 83.5 fl (78.0-98.0); Mean Platelet Volume 9.8 fL (7.4-10.4); Platelet Count 236 10x3/uL (130-400); RBC Distribution Width 18.2 % (11.5-14.5); Red Blood Cell (RBC) Count 4.86 mill/uL (4.20-5.40); White Blood Cell (WBC) Count 12.4 10x3/uL (4.8-10.8)
[2023-06-13 15:28] LABS: INR-International Normal Ratio 1.1
[2023-06-13 15:38] LABS: ALT (SGPT) 14 U/L (8-55); AST (SGOT) 16 U/L (5-34); Albumin 4.5 g/dL (3.5-5.0); Alkaline Phosphatase 65 U/L (40-110); Anion Gap 14 mmol/L (10-20); BUN (Urea Nitrogen) 5 mg/dL (7.0-18.7); Bilirubin, Total 1.1 mg/dL (0.2-1.2); Calc. Creatinine Clearance 0 mL/min (70-130); Calcium 9.5 mg/dL (7.8-10.44); Carbon Dioxide 22 mmol/L (22-29); Chloride 103 mmol/L (98-107); Estimated GFR 81; Globulin 3.8 g/dL (2.4-3.5); Glucose 112 mg/dL (70-105); Potassium 3.7 mmol/L (3.5-5.1); Protein, Total 8.3 g/dL (6.0-8.3); Sodium 135 mmol/L (136-145)
[2023-06-13 17:00] LABS: BHCG - Serum Negative (NEGATIVE); Pregs Control Background? CLEAR/WHITE (CLR/WHITE); Pregs Control Bar Appear? YES (CONTROL BAR)
[2023-06-13 17:28] LABS: Bacteria/HPF 4+ HPF (None Seen); Bilirubin Negative (Negative); Blood, Urine 2+ (Negative); CAUTI Indications for Culture Pelvic or flank pain; Clarity Extra Turbid (Clear); Glucose, Urine (Dipstick) Normal (Negative); Ketone, Urine Negative (Negative); Leukocyte 500 Leu/uL (Negative); Nitrite Negative (Negative); Protein, Urine (Dipstick) 100 mg/dL (Neg-Trace); Specific Gravity, Urine 1.013 (1.002-1.036); Squamous Epithelial None Seen HPF (0-3); Urobilinogen 6 mg/dL (Less than 2); WBC/HPF Greater than 50 HPF (0-3); pH, Urine 6.5 (5.0-9.0)
[2023-06-13 17:29] LABS: Pregnancy Test - Urine (BHCG) Negative (Negative); Pregu Control Background? CLEAR/WHITE (CLR/WHITE); Pregu Control Bar Appear? YES (CONTROL BAR); Specific Gravity 1.013 (1.002-1.036); Urine Culture Reflex Yes Yes
[2023-06-13] MEDS ORDERED: Doxycycline 100 MG in Sodium Chloride 0.9% 100 ML IVPB SCH (20:00)
[2023-06-13] MEDS ORDERED: metroNIDAZOLE 500 MG/100 ML BAG ONE (22:00)
[2023-06-13] MEDS ORDERED: Ondansetron ODT 4 MG TAB PO PRN (22:57)
[2023-06-13] MEDS ORDERED: Ondansetron PF 4 MG/2 ML Vial IVP PRN (22:57)
[2023-06-13] MEDS ORDERED: Acetaminophen 500 MG TAB ONE (23:03)
[2023-06-13] MEDS ORDERED: Lactated Ringer's 1,000 ML IV SCH (23:15)
[2023-06-14 00:38] VITALS: BMI 25.8
[2023-06-14] MEDS ORDERED: Piperacillin/Tazobactam 3.375 GM in Sodium Chloride 0.9% 100 ML IVPB SCH ×2 (00:45→05:00)
[2023-06-14] MEDS: Acetaminophen 500 MG TAB PO SCH ×4 (00:57→22:31)
[2023-06-14] MEDS ORDERED: VANCOMYCIN 1.25 GM/250 ML BAG 1.25 GM in Premix Bag 1 BAG IVPB SCH (01:15)
[2023-06-14 03:39] LABS: Chlamydia by PCR, Vaginal Swab *Indeterminate (NotDetected); GC by PCR, Vaginal Swab *Indeterminate (NotDetected)
[2023-06-14 06:40] LABS: #Monocytes 1.5 thou/uL (0.11-0.59); #Neutrophils 14.9 thou/uL (1.40-6.50); %Basophils 0.2 % (0.0-1.0); %Eosinophils 0.1 % (0.0-10.0); %Neutrophils 81.1 % (42.0-75.0); Hematocrit 34.6 % (36.0-47.0); Hemoglobin 10.4 g/dL (12.0-16.0); Mean Corpuscular HGB CONC 30.1 g/dL (32.0-36.0); Mean Corpuscular Hemoglobin 25.7 pg (27.0-31.0); Mean Corpuscular Volume 85.6 fl (78.0-98.0); Mean Platelet Volume 10.5 fL (7.4-10.4); Platelet Count 199 10x3/uL (130-400); RBC Distribution Width 18.4 % (11.5-14.5); Red Blood Cell (RBC) Count 4.04 mill/uL (4.20-5.40); White Blood Cell (WBC) Count 18.4 10x3/uL (4.8-10.8)
[2023-06-14 07:09] LABS: ALT (SGPT) 11 U/L (8-55); AST (SGOT) 11 U/L (5-34); Albumin 3.1 g/dL (3.5-5.0); Alkaline Phosphatase 46 U/L (40-110); Anion Gap 9 mmol/L (10-20); BUN (Urea Nitrogen) 7 mg/dL (7.0-18.7); Bilirubin, Total 0.9 mg/dL (0.2-1.2); Calc. Creatinine Clearance 127 mL/min (70-130); Calcium 7.7 mg/dL (7.8-10.44); Carbon Dioxide 22 mmol/L (22-29); Chloride 110 mmol/L (98-107); Estimated GFR 109; Globulin 2.9 g/dL (2.4-3.5); Glucose 99 mg/dL (70-105); Potassium 3.6 mmol/L (3.5-5.1); Sodium 137 mmol/L (136-145)
[2023-06-14] MEDS ORDERED: Lactated Ringer's 1,000 ML IV SCH (11:45)
[2023-06-14] MEDS ORDERED: Sodium Chloride 0.9% 1,000 ML IV SCH (12:00)
[2023-06-14] MEDS ORDERED: metroNIDAZOLE 500 MG in Premix Bag 1 BAG IVPB SCH ×2 (12:00→21:00)
[2023-06-14] MEDS ORDERED: Doxycycline 100 MG CAP PO SCH ×3 (12:00→21:00)
[2023-06-14] MEDS: Sodium Chloride 0.9% 1,000 ML IV SCH ×2 (12:05→20:21)
[2023-06-14] MEDS ORDERED: Ibuprofen 600 MG TAB PO PRN (12:18)
[2023-06-14] MEDS ORDERED: Vancomycin 1 GM in Premix Bag 1 BAG IVPB SCH (13:00)
[2023-06-14] MEDS: cefTRIAXone\\ROCEPHIN 1 GM in Sodium Chloride 0.9% 100 ML IVPB SCH (14:48)
[2023-06-14] MEDS: metroNIDAZOLE 500 MG in Premix Bag 1 BAG IVPB SCH (23:43)
[2023-06-14] MEDS: Doxycycline 100 MG CAP PO SCH (23:43)
[2023-06-15] MEDS: Sodium Chloride 0.9% 1,000 ML IV SCH (05:47)
[2023-06-15 06:26] LABS: #Eosinphils 0.2 thou/uL (0.0-0.7); #Monocytes 1.2 thou/uL (0.11-0.59); #Neutrophils 11.5 thou/uL (1.40-6.50); %Basophils 0.1 % (0.0-1.0); %Lymphocytes 10.8 % (21.0-51.0); %Monocytes 8.5 % (0.0-10.0); Hematocrit 32.6 % (36.0-47.0); Mean Corpuscular HGB CONC 30.7 g/dL (32.0-36.0); Mean Corpuscular Hemoglobin 25.6 pg (27.0-31.0); Mean Corpuscular Volume 83.6 fl (78.0-98.0); Mean Platelet Volume 10.3 fL (7.4-10.4); Platelet Count 194 10x3/uL (130-400); RBC Distribution Width 18.1 % (11.5-14.5); White Blood Cell (WBC) Count 14.6 10x3/uL (4.8-10.8)
[2023-06-15] MEDS: Acetaminophen 500 MG TAB PO SCH ×2 (06:37→13:58)
[2023-06-15 06:59] LABS: ALT (SGPT) 9 U/L (8-55); AST (SGOT) 13 U/L (5-34); Alkaline Phosphatase 57 U/L (40-110); Anion Gap 3 mmol/L (10-20); BUN (Urea Nitrogen) 4 mg/dL (7.0-18.7); Bilirubin, Total 0.5 mg/dL (0.2-1.2); Calc. Creatinine Clearance 148 mL/min (70-130); Calcium 8.2 mg/dL (7.8-10.44); Carbon Dioxide 22 mmol/L (22-29); Chloride 113 mmol/L (98-107); Estimated GFR 125; Globulin 2.9 g/dL (2.4-3.5); Glucose 94 mg/dL (70-105); Potassium 3.1 mmol/L (3.5-5.1); Protein, Total 5.9 g/dL (6.0-8.3); Sodium 135 mmol/L (136-145)
[2023-06-15] MEDS ORDERED: Sodium Chloride 0.9% 1,000 ML IV SCH (08:51)
[2023-06-15] MEDS ORDERED: Potassium Chloride 20 MEQ TAB PO SCH (09:00)
[2023-06-15] MEDS: Doxycycline 100 MG CAP PO SCH (11:36)
[2023-06-15] MEDS: cefTRIAXone\\ROCEPHIN 1 GM in Sodium Chloride 0.9% 100 ML IVPB SCH (11:36)
[2023-06-15] MEDS: metroNIDAZOLE 500 MG in Premix Bag 1 BAG IVPB SCH (13:58)
[2023-06-16] MEDS: Acetaminophen 500 MG TAB PO SCH ×2 (00:28→05:28)
[2023-06-16] MEDS: Doxycycline 100 MG CAP PO SCH ×2 (00:28→12:22)
[2023-06-16] MEDS: metroNIDAZOLE 500 MG in Premix Bag 1 BAG IVPB SCH ×3 (00:28→12:27)
[2023-06-16 07:06] LABS: #Eosinphils 0.2 thou/uL (0.0-0.7); #Monocytes 0.8 thou/uL (0.11-0.59); #Neutrophils 5.5 thou/uL (1.40-6.50); %Basophils 0.1 % (0.0-1.0); %Eosinophils 2.1 % (0.0-10.0); %Lymphocytes 21.4 % (21.0-51.0); %Monocytes 9.7 % (0.0-10.0); %Neutrophils 66.5 % (42.0-75.0); Hematocrit 30.7 % (36.0-47.0); Hemoglobin 9.5 g/dL (12.0-16.0); Mean Corpuscular HGB CONC 30.9 g/dL (32.0-36.0); Mean Corpuscular Hemoglobin 25.6 pg (27.0-31.0); Mean Corpuscular Volume 82.7 fl (78.0-98.0); Mean Platelet Volume 10.7 fL (7.4-10.4); Platelet Count 222 10x3/uL (130-400); RBC Distribution Width 18.2 % (11.5-14.5); Red Blood Cell (RBC) Count 3.71 mill/uL (4.20-5.40); White Blood Cell (WBC) Count 8.3 10x3/uL (4.8-10.8)
[2023-06-16 07:27] LABS: ALT (SGPT) 9 U/L (8-55); AST (SGOT) 10 U/L (5-34); Alkaline Phosphatase 50 U/L (40-110); Anion Gap 7 mmol/L (10-20); BUN (Urea Nitrogen) 4 mg/dL (7.0-18.7); Bilirubin, Total 0.3 mg/dL (0.2-1.2); Calc. Creatinine Clearance 146 mL/min (70-130); Calcium 8.6 mg/dL (7.8-10.44); Carbon Dioxide 22 mmol/L (22-29); Chloride 111 mmol/L (98-107); Estimated GFR 125; Globulin 2.9 g/dL (2.4-3.5); Glucose 90 mg/dL (70-105); Potassium 3.5 mmol/L (3.5-5.1); Protein, Total 5.9 g/dL (6.0-8.3); Sodium 136 mmol/L (136-145)
[2023-06-16 08:33] VITALS: BP 104/74; TEMP 99
[2023-06-16] MEDS: cefTRIAXone\\ROCEPHIN 1 GM in Sodium Chloride 0.9% 100 ML IVPB SCH ×2 (12:22→12:28)
== END 2023-06-16 13:55 | disposition home or self-care (01) | DRG 776 ==
LOC: ERS 14:19 → T4-B 22:57
PROVIDERS: ADMIT Family Medicine; ATTEND Family Medicine
DX: O85 Puerperal sepsis (principal); N10 Acute pyelonephritis; O98.33 Other infections with a predominantly sexual mode of transmission complicating the puerperium; N85.8 Other specified noninflammatory disorders of uterus; Z87.891 Personal history of nicotine dependence; A64 Unspecified sexually transmitted disease
CPT/HCPCS: 36415; 74177; 76770; 76856; 80053; 81025; 83605; 84703; 85025; 85610; 85730; 86140; 87040; 87077; 87086; 87186; 87480; 87491; 87510; 87591; 87660; 96361; 96365; 96367; 96375; J0696; J1885; J2270; J2405; J2543; J3370; J3490; J7050; J7120

== ENCOUNTER 2023-08-07 17:13 | Emergency (ER) | payer OTHER, SELFPAY ==
[~2023-08-07 17:13] MED LIST: Iopamidol-370 76% 500 ML MDV (1 ML CHARGE) ONE
[2023-08-07] MEDS ORDERED: Acetaminophen 500 MG TAB ONE (18:02)
[2023-08-07 18:12] LABS: #Monocytes 0.7 thou/uL (0.11-0.59); #Neutrophils 9.7 thou/uL (1.40-6.50); %Basophils 0.2 % (0.0-1.0); %Eosinophils 0.2 % (0.0-10.0); %Lymphocytes 13.4 % (21.0-51.0); %Monocytes 5.8 % (0.0-10.0); %Neutrophils 80.1 % (42.0-75.0); Hematocrit 41.4 % (36.0-47.0); Hemoglobin 12.9 g/dL (12.0-16.0); Mean Corpuscular HGB CONC 31.2 g/dL (32.0-36.0); Mean Corpuscular Hemoglobin 26.4 pg (27.0-31.0); Mean Corpuscular Volume 84.7 fl (78.0-98.0); Mean Platelet Volume 10.7 fL (7.4-10.4); Platelet Count 306 10x3/uL (130-400); RBC Distribution Width 13.3 % (11.5-14.5); Red Blood Cell (RBC) Count 4.89 mill/uL (4.20-5.40); White Blood Cell (WBC) Count 12.1 10x3/uL (4.8-10.8)
[2023-08-07 18:27] LABS: PTT 28.6 sec (22.9-36.1)
[2023-08-07 18:37] LABS: BHCG - Serum Negative (NEGATIVE)
[2023-08-07 18:38] LABS: Pregs Control Background? CLEAR/WHITE (CLR/WHITE); Pregs Control Bar Appear? YES (CONTROL BAR)
[2023-08-07 18:53] LABS: ALT (SGPT) 15 U/L (8-55); AST (SGOT) 14 U/L (5-34); Albumin 4.7 g/dL (3.5-5.0); Alkaline Phosphatase 65 U/L (40-110); Anion Gap 13 mmol/L (10-20); BUN (Urea Nitrogen) 6 mg/dL (7.0-18.7); Bilirubin, Total 0.4 mg/dL (0.2-1.2); Calc. Creatinine Clearance 0 mL/min (70-130); Calcium 9.7 mg/dL (7.8-10.44); Carbon Dioxide 21 mmol/L (22-29); Chloride 105 mmol/L (98-107); Estimated GFR 110; Globulin 3.8 g/dL (2.4-3.5); Glucose 95 mg/dL (70-105); Lipase 19 U/L (8-78); Magnesium 1.8 mg/dL (1.6-2.6); Potassium 3.8 mmol/L (3.5-5.1); Protein, Total 8.5 g/dL (6.0-8.3); Sodium 135 mmol/L (136-145)
[2023-08-07] MEDS ORDERED: cefTRIAXone (ROCEPHIN) 1 GM VIAL ONE (19:52)
[2023-08-07 20:29] LABS: Bacteria/HPF None Seen HPF (None Seen); Bilirubin Negative (Negative); Blood, Urine 2+ (Negative); CAUTI Indications for Culture Dysuria,urgency,freq; Clarity Turbid (Clear); Glucose, Urine (Dipstick) Normal (Negative); Ketone, Urine Negative (Negative); Leukocyte 500 Leu/uL (Negative); Nitrite Negative (Negative); Protein, Urine (Dipstick) 30 mg/dL (Neg-Trace); RBC/HPF 21-50 HPF (0-3); Specific Gravity, Urine 1.048 (1.002-1.036); Squamous Epithelial 0-3 HPF (0-3); WBC/HPF Greater than 50 HPF (0-3)
[2023-08-07 20:31] LABS: Urine Culture Reflex Yes Yes
== END 2023-08-07 21:42 | disposition home or self-care (01) ==
LOC: ERS 17:13
DX: N10 Acute pyelonephritis (principal)
CPT/HCPCS: 36415; 74177; 80053; 81001; 83605; 83690; 83735; 84703; 85025; 85610; 85730; 87040; 87077; 87086; 87186; 96361; 96365; J0696; Q9967